=== PATIENT | female | born 1980 | race Caucasian/White ===

== ENCOUNTER 2016-05-17 16:34 | Emergency (ER) | payer BC ==
[~2016-05-17 16:34] MED LIST: ADDERALL20 MG PO; ADDERALL30 MG PO; BUSPAR30 MG PO; DITRO5 PO; DSS PO; FENESIN IR400 MG PO; FLAG500TAB PO; GEODON40 MG PO; GEODON60 MG PO; GEODON80 PO; GREEN TEA PO; HARD NAILS PO; I10 PO; I20 PO; INDE80 PO; KADIANSR20 PO; KLONO5 PO; LAMICTAL150 MG PO; LEVAQUIN750 MG PO; MSCONT60 PO; MULTIVITAMI1 PO; PERCOCET1 TA4 PO; PERCOCET1 TA5 PO; PROZ10 PO; PROZAC40 MG PO; PYR100B PO; STRATTERA100 MG PO; TOPAMAX25 PO; TRIHEXYPHEN5 MG PO; WELLSR150 PO; XANAX1 MG PO; ZANAFLEX 4 MG TA4 MG PO
[2016-05-17 18:18] LABS: BASOPHILS 0.6 %; BASOPHILS ABSOLUTE 0.05 10/3/uL (0.0-0.16); EOSINOPHILS 3.5 %; ER CBC TAT 0 Hrs 08 Mins; HEMATOCRIT 38.7 % (36.0-48.0); HEMOGLOBIN 13.4 g/dL (12.0-16.0); IMMATURE GRANULOCYTES 0.1 %; IMMATURE GRANULOCYTES ABSOLUTE 0.01 10/3/uL (0.0-0.11); LYMPHOCYTES 30.2 %; LYMPHOCYTES ABSOLUTE 2.61 10/3/uL (0.67-4.30); MEAN CORPUS HGB CONC 34.6 g/dL (32.0-36.0); MEAN CORPUSCULAR HEMOGLOB 32.7 pg (26.0-34.0); MEAN PLATELET VOLUME 10.6 fL (9.2-13.0); MONOCYTES 4.4 %; MONOCYTES ABSOLUTE 0.38 10/3/uL (0.21-1.20); NEUTROPHILS 61.2 %; NEUTROPHILS ABSOLUTE 5.28 10/3/uL (2.02-8.40); PLATELET COUNT 285 10/3/uL (150-400); RBC DISTRIBUTION WIDTH 12.8 % (12.0-16.0); WHITE BLOOD CELLS 8.6 10/3/uL (4.5-10.5)
[2016-05-17 18:19] LABS: MANUAL DIFF NO %; MEAN CORPUSCULAR VOLUME 94.4 fL (80-100)
[2016-05-17 18:23] LABS: ASCORBIC ACID (UR NOT ORDER) NEG (NEG); BILIRUBIN, URINE NEGATIVE (NEG); KETONE, URINE NEGATIVE (NEG); LEUKOCYTE ESTERASE(NOT OR NEG (NEG); NITRITE (URINE) NEG (NEG); WBC (NOT ORDERED) (RFLEX) < 1 (0-5)
[2016-05-17 18:34] LABS: ALBUMIN 3.8 G/DL (3.5-5.0); CHLORIDE, SERUM 99 MMOL/L (96-112); CREATININE 1.06 MG/DL (0.55-1.02); GFR AFRICAN AMERICAN 80 ML/MIN (>=60); GFR NON AFRICAN AMERICAN 69 ML/MIN (>=60); GLOBULIN 3.7 G/DL (2.5-4.1); GLUCOSE, SERUM 108 MG/DL (60-99); POTASSIUM, SERUM 4.3 MMOL/L (3.5-5.3); SGOT(AST) 87 U/L (5-40); SGPT(ALT) 89 U/L (5-65); SODIUM, SERUM 139 MMOL/L (135-148); TOTAL BILIRUBIN 0.4 MG/DL (0-1.2); TOTAL PROTEIN 7.5 G/DL (6.0-8.5)
[2016-05-17 18:35] LABS: ALKALINE PHOSPHATASE 87 U/L (45-117); BUN (BLOOD UREA NITROGEN) 13 MG/DL (6-23); CO2 (CARBON DIOXIDE) 32 MMOL/L (24-34)
== END 2016-05-17 19:20 | disposition home or self-care (01) ==
LOC: ER 16:34
PROVIDERS: Nurse Practitioner Acute Care
DX: R10.32 Left lower quadrant pain (principal); R10.31 Right lower quadrant pain; I10 Essential (primary) hypertension; F31.9 Bipolar disorder, unspecified; F41.9 Anxiety disorder, unspecified; Z87.442 Personal history of urinary calculi; Z90.710 Acquired absence of both cervix and uterus; Z88.5 Allergy status to narcotic agent; Z88.8 Allergy status to other drugs, medicaments and biological substances; Z79.899 Other long term (current) drug therapy
CPT/HCPCS: 80053; 81001; 83690; 85025; 96372; 96374; 99284; J1170; J1980; J2550